=== PATIENT | female | born 1975 | race African-American/Black ===

== ENCOUNTER 2020-06-24 12:17 | Emergency (ER) | payer MEDICAID ==
[~2020-06-24] VITALS: Ht 170.2 cm; Wt 60.0 kg
[2020-06-24] MEDS ORDERED: ONDANSETRON HCL 4MG/2ML INJ IV STA (12:53)
[2020-06-24] MEDS ORDERED: MORPHINE SULFATE 4 MG/ML CPJ (NOT FOR IM USE) IV STA (12:53)
[2020-06-24] MEDS ORDERED: SODIUM CHLORIDE 0.9% 1,000 ML IV ONE ×2 (13:00→14:00)
[2020-06-24 13:16] LABS: BASOPHILS % 0.6 % (0.0-2.0); EOSINOPHILS % 0.5 % (0.0-5.0); HEMATOCRIT. 41.8 % (36.0-48.0); HEMOGLOBIN. 14.1 g/dL (12.0-16.0); LYMPHOCYTES % 9.4 % (20.0-50.0); MEAN CORPUSCULAR HEMOGLOBIN 32.2 pg (28.0-32.0); MEAN CORPUSCULAR VOLUME 95.3 fL (81.0-99.0); MEAN PLATELET VOLUME 7.1 fl (7.4-10.4); MONOCYTES % 7.1 % (2.0-8.0); NEUTROPHILS % 82.4 % (40.0-76.0); PLATELET 359 x1000/uL (130-400); RED BLOOD CELL COUNT 4.39 mill/uL (4.2-5.4); RED CELL DISTRIBUTION WIDTH 14.7 % (11.6-14.6)
[2020-06-24 13:22] LABS: CHLORIDE 104 mEq/L (98-107)
[2020-06-24 13:25] LABS: PROTHROMBIN TIME 10.9 sec (9.6-11.0)
[2020-06-24 16:14] LABS: CLARITY URINE CLEAR (CLEAR); COLOR URINE YELLOW (YELLOW); KETONES URINE 1+ (NEGATIVE); LEUKOCYTE ESTERASE URINE 1+ (NEGATIVE); NITRITE URINE NEGATIVE (NEGATIVE); OCCULT BLOOD URINE 2+ (NEGATIVE); PH URINE 6.5 (4.5-8.0); PROTEIN URINE NEGATIVE (NEGATIVE); SPECIFIC GRAVITY URINE 1.019 (1.005-1.030); UROBILINOGEN URINE 0.2 E.U./dL (0.2-1.0)
[2020-06-24 17:30] VITALS: BP 152/85
[2020-06-24] MEDS ORDERED: LOPE2CAP MT (18:23)
[2020-06-24] MEDS ORDERED: ONDA4TAB5 MT (18:23)
[2020-06-24] MEDS ORDERED: DICYCLOMINE HCL 10MG CAPSULE PO ONE (18:30)
[2020-06-24] MEDS ORDERED: ONDANSETRON 4MG ODT PO ONE (19:00)
== END 2020-06-24 19:32 | disposition home or self-care (01) ==
LOC: ER 12:17
DX: K52.9 Noninfective gastroenteritis and colitis, unspecified (principal); R11.10 Vomiting, unspecified; J45.909 Unspecified asthma, uncomplicated
CPT/HCPCS: 36415; 74176; 80053; 81003; 81025; 83690; 85025; 85610; 93005; 96361; 96374; 96375; 99285; J2270; J2405; J7030; Q0162